=== PATIENT | male | born 1955 | race Caucasian/White ===

== ENCOUNTER 2019-01-31 10:55 | Inpatient (IN) | payer OTHER ==
[~2019-01-31] VITALS: Ht 182.9 cm; Wt 93.0 kg
[~2019-01-31 10:55] MED LIST: DAILY MULTIPLE PO; SIMVASTATIN20 M1 PO
[2019-01-31 11:25] VITALS: BP 152/90
[2019-01-31 12:11] LABS: BASOPHIL % 0.8 % (0-2); PLATELET COUNT 166 x10^3mcL (130-400); RED CELL DISTRIBUTION WIDTH 13.2 % (11.5-14.5)
[2019-01-31 12:21] LABS: CALCIUM 9.1 mg/dL (8.5-10.1); CHLORIDE SERUM 106 mmol/L (98-107); CREATININE SERUM 0.8 mg/dL (0.7-1.3); GFR1 > 60 mL/min; GLUCOSE SERUM 103 mg/dL (74-106); POTASSIUM SERUM 4.3 mmol/L (3.5-5.1); SODIUM SERUM 139 mmol/L (136-145)
[2019-01-31 12:26] LABS: ALBUMIN 3.8 g/dL (3.4-5.0); ALKALINE PHOSPHATASE 106 U/L (46-116); ALT/SGPT 31 U/L (16-63); AST/SGOT 7 U/L (15-37); BILIRUBIN TOTAL 0.86 mg/dL (0.20-1.00); TOTAL PROTEIN, SERUM 7.5 g/dL (6.4-8.2)
[2019-01-31 14:12] VITALS: BP 152/90
--- NOTE | 2019-01-31 19:55 | NUR ---
RECEIVED PT FROM OR, PT IS A/O X4, VERBAL RESPONSIVE, ABLE TO TELL WHAT HE NEEDS. LUNG SOUND CLEAR BILATERAL, NO COUGH, NO SOB, PT DENY ANY CHEST PAIN OR DISCOMFORT, BOWEL SOUND ABSENT AT THIS MOMENT. NO DISTENTION, NO TENDER. PEDAL PULSE PESENT BOTH FEET, NO EDEMA, RIGHT KNEE S/P SURGERY, CDI, POLAR MACHINE IS IN PLACE, FIRST DRESSING, UNABLE TO TAKE PICTURE, IV AT LEFT FA, NO LEAKING, NO INFILTRATION, ALL ADLS ASSIST, ALL NEED MET, CALL LIGHT IN REACH, WILL CONTINUE TO MONITOR.
--- NOTE | 2019-01-31 20:01 | NUR ---
DR. ZIMMERMAN NOTIFIED REGARDING CLARIFICATION OF TYLENOL ORDER. ORDER RECEIVED AND INITIATED.
--- NOTE | 2019-01-31 20:23 | NUR ---
PATIENT HAD DILAUDID A WHILE AGO,MODERATE PAIN,ALSO INITIATED TYLENOL Q 6 HOURS RTC ORDER NOT PRN.POLAR MACHINE INTACT R KNEE,POST OP PROTOCOL.ICE IN BUCKET WITH WATER.
--- NOTE | 2019-01-31 21:18 | NUR ---
WILL INITIATE TORADOL AT MIDNIGHT ORDERED. X 3 DOSES.
--- NOTE | 2019-01-31 21:18 | NUR ---
BLADDER TRAINING INITIATED.WILL DC MONICA AT 0730 AM.
--- NOTE | 2019-01-31 21:21 | NUR ---
PATIENT IV SITE,LFA,EXTENSION TUBING APPLIED FOR EASIER HANDLING BOTH PATIENT AND NURSE.NS AT 80 CC/ HOUR ALREADY INITIATED.ANCEF GIVEN NOW,NO INCIDENT,TAJ,DAUGHTER STAYING FOR TONIGHT,VERY SUPPORTIVE OF CARE.WILL REFRESH POLAR MACHINE ICE WHEN NEEDED.
--- NOTE | 2019-01-31 21:38 | NUR ---
XRAY R KNEE POST OR,NO EVIDENCE FOR MALALIGNMENT OR FX/REPORT FILED IN CHART.
--- NOTE | 2019-01-31 23:52 | NUR ---
POLAR MACHINE,NEW SET OF ICE/WATER TO THE RIGHT LEVEL,INSTRUCTED TAJ DAUGHTER HOW TO USE IT AND RATIONALE OF IT.MIDNIGHT MED TORADOL DUE AND WILL GIVE.
--- NOTE | 2019-02-01 05:07 | NUR ---
GIVEN NORCO AT 0458,SWALLOWS WELL.
--- NOTE | 2019-02-01 05:26 | NUR ---
WHEN DIILAUDID WAS GIVEN FIRST THING LAST NOC,TOO STRONG.TYLENOL AND TORADOL RTC.
--- NOTE | 2019-02-01 05:29 | NUR ---
POLAR MACHINE,NEW SET OF ICE AGAIN.
--- NOTE | 2019-02-01 05:46 | NUR ---
PATIENT SAYS THAT HE IS PASSING GAS AND BURPING.
[2019-02-01 06:06] VITALS: BP 104/63
--- NOTE | 2019-02-01 06:39 | NUR ---
WILL ENDORSE TO NEXT SHIFT.
[2019-02-01 06:47] LABS: BASOPHIL % 0.2 % (0-2); PLATELET COUNT 185 x10^3mcL (130-400)
[2019-02-01 06:48] LABS: CALCIUM 8.3 mg/dL (8.5-10.1); CARBON DIOXIDE 24.7 mmol/L (21-32); CHLORIDE SERUM 102 mmol/L (98-107); CREATININE SERUM 0.9 mg/dL (0.7-1.3); GFR1 > 60 mL/min; GLUCOSE SERUM 164 mg/dL (74-106); POTASSIUM SERUM 4.4 mmol/L (3.5-5.1); SODIUM SERUM 137 mmol/L (136-145)
--- NOTE | 2019-02-01 07:25 | NUR ---
RECEIVED PT FROM NIGHT NURSE. PT IS LAYING DOWN IN BED WITH HOB UP RESTING. ICE APPLIED TO RIGHT KNEE. PT LOOKS TO BE IN NO ACUTE DISTRESS AND DENIES ANY PAIN AT THIS TIME. DRESSING TO RIGHT KNEE CDI. RESPIRATIONS EVEN AND UNLABORED ON ROOM AIR. IV SITE PATENT WITH NO SIGNS OF ERYTHEMA OR SWELLING WITH IV FLUIDS INFUSING. FAMILY MEMBERS AT BEDSIDE. BED IN LOWEST POSITION, CALL LIGHT WITHIN REACH. WILL CONTINUE TO MONITOR.
[2019-02-01 09:31] VITALS: BP 122/59
--- NOTE | 2019-02-01 11:00 | NUR ---
PT AMBULATED TO BATHROOM WITH ASSISTANCE OF FAMILY AND VOIDED FREELY.
[2019-02-01 13:02] VITALS: BP 122/59
--- NOTE | 2019-02-01 14:45 | NUR ---
PT AWAKE, ALERT AND ORIENTED AT TIME OF DISCHARGE. PT LOOKS TO BE IN NO ACUTE DISTRESS AT TIME OF DISCHARGE. PT DISCHAGED HOME AND WENT TO LOBBY VIA WHEELCHAIR ACCOMPANIED BY NURSE AND FAMILY MEMBERS WITH LUZMARIA IN HAND. PROVIDED PT WITH PRESCRIPTIONS AND EDUCATION. FAMILY HAS PICKED UP PRESCRIPTIONS AND FAMILY AND PATIENT VERBALIZED UNDERSTANDING OF EDUCATION AND PRESCRIPTION. FAMILY MEMBER STATED A FOLLOW UP APPOINTMENT HAS BEEN SET UP WITH SURGEON AND INFORMED FAMILY MEMBER AND PATIENT OF IMPORTANCE OF GOING TO FOLLOW UP APPOINTMENT, FAMILY MEMBER AND PATIENT VERBALIZED UNDERSTANDING. REMOVED IV AND CATHETER FULLY INTACT. REMOVED ID BANDS, ALL QUESTIONS AND CONCERNS ADDRESSED.
== END 2019-02-01 14:57 | disposition home or self-care (01) | DRG 470 ==
LOC: MU 10:55
PROVIDERS: ADMIT Orthopaedic Surgery
PROC: 0SRC0J9 Replacement of Right Knee Joint with Synthetic Substitute, Cemented, Open Approach (ICD-10-PCS; principal; 2019-01-31 13:30)
DX: M17.11 Unilateral primary osteoarthritis, right knee (principal); Z79.82 Long term (current) use of aspirin; Z79.891 Long term (current) use of opiate analgesic; Z68.28 Body mass index [BMI] 28.0-28.9, adult
CPT/HCPCS: 97116-GP; 97530-GP; C1713; C1776; G0378; J0171; J0690; J1100; J1170; J1885; J2250; J2270; J2405; J2704; J3010; J3490; J7030; J7120; Q0092